=== PATIENT | male | born 1985 | race Caucasian/White ===

== ENCOUNTER 2023-06-01 11:10 | Emergency (ER) | payer SELFPAY ==
[2023-06-01 11:14] VITALS: BP 177/110; PULSE 86; RESP 16; TEMP 36.5; O2SAT 97; BMI 27.1
--- NOTE | 2023-06-01 11:19 | DI.RAD.S_ITS ---
PROCEDURE: XR RIBS LT MIN 3V W CXR1V INDICATIONS: fall/pain in left ribs TECHNIQUE: 4 views of the left ribs were acquired, along with a single view chest. COMPARISON: None. FINDINGS: Surgical changes and devices: None. Bones and chest wall: No fractures or dislocations. No suspicious bony lesions. Overlying soft tissues appear unremarkable. Lungs and pleura: No pleural effusions or pneumothorax. Lungs appear clear. Mediastinum: Mediastinal contours appear normal. Heart size is normal. IMPRESSION: No acute fracture. No osseous lesion. If symptoms and/or clinical suspicion for pathology persist, further assessment with repeat, or advanced imaging (e.g., CT, MRI, or bone scan) may be helpful for further assessment. Dictated by: Fiorella Sawyer M.D. on 06/01/2023 at 11:50 Approved by: Fiorella Sawyer M.D. on 06/01/2023 at 11:51
--- NOTE | 2023-06-01 12:55 | ED.FALL ---
HPI - Fall <Marce Strong PA-C - Last Filed: 06/01/23 13:00> General Chief Complaint: Fall Stated Complaint: poss broken ribs Time Seen by Provider: 06/01/23 12:01 Source: patient Mode of arrival: Ambulatory History of Present Illness HPI Narrative: 38-year-old male presents to the ED with left-sided rib pain status post a mechanical fall sustained yesterday. Patient states that he had a mechanical fall, fell off his porch onto his trash can, striking his left lower ribs. Patient states that he took some Aleve this morning that improved his pain. Patient denies chest pain, shortness of breath, abdominal pain, vomiting. Related Data Allergies Allergy/AdvReac Type Severity Reaction Status Date / Time No Known Drug Allergies Allergy Verified 06/01/23 11:14 Review of Systems <Marce Strong PA-C - Last Filed: 06/01/23 13:00> Constitutional Constitutional: Denies chills, Denies fatigue, Denies fever(s), Denies frequent falls, Denies lethargy and Denies weakness Eyes Eyes: Denies change in vision, Denies eye discharge, Denies irritation and Denies loss of vision ENT Ears, Nose, Mouth, and Throat: Denies change in voice, Denies dizziness, Denies neck pain, Denies sore throat and Denies throat swelling Cardiovascular Cardiovascular: Denies chest pain, Denies irregular heart rhythm, Denies lightheadedness, Denies palpitations, Denies dyspnea, Denies dyspnea on exertion and Denies orthopnea Respiratory Respiratory: Denies cough, Denies dyspnea, Denies dyspnea on exertion and Denies wheezing Gastrointestinal Gastrointestinal: Denies abdominal pain, Denies change in bowel habits, Denies diarrhea, Denies nausea and Denies vomiting Musculoskeletal Musculoskeletal: Denies neck pain and Denies numbness Comments: Left-sided rib pain Integumentary/Breasts Skin/Breast: Denies pruritus, Denies erythema, Denies rash and Denies wounds Neurologic Neurologic: Denies behavioral changes, Denies confusion, Denies dizziness, Denies frequent falls, Denies loss of vision, Denies numbness and Denies weakness Psychiatric Psychiatric: Denies anxiety, Denies behavioral changes, Denies confusion, Denies depression, Denies homicidal ideation and Denies suicidal ideation Endocrine Endocrine: Denies fatigue, Denies flushing and Denies palpitations Hematologic/Lymphatic Hematologic/Lymphatic: Denies easy bruising Allergic/Immunologic Allergic/Immunologic: Denies urticaria, Denies throat swelling and Denies wheezing Patient History <Marce Strong PA-C - Last Filed: 06/01/23 13:00> Social History Smoking Status: Current every day smoker Smoking Status: Current every day smoker tobacco type: cigarettes alcohol intake frequency: 0-2 drinks per day Substance Use Type: does not use Exam <Marce Strong PA-C - Last Filed: 06/01/23 13:00> Narrative Exam Narrative: Const General:?cooperative, healthy appearing and comfortable HENMT Head:?normal to inspection Ears:?hearing grossly normal bilaterally Nose:?external nose normal Face and sinus:?normal facial exam and sinuses nontender Mouth:?oral mucosae normal Throat:?posterior oropharynx normal Eyes General:?appearance normal, both eyes and all related structures Neck Neck:?normal visual inspection and no lymphadenopathy noted Resp Effort & Inspection:?normal respiratory effort Auscultation:?clear to auscultation bilaterally Cardio Rate:?regular rate Rhythm:?regular rhythm Musculoskeletal No erythema, deformities, bruising, tenderness to palpation of right lower ribs. Abdomen is soft, nondistended, nontender to palpation. No CVA tenderness. Neuro General:?patient alert, patient awake and patient oriented x3 Initial Vital Signs Initial Vital Signs: Vital Signs Temperature 97.7 F 06/01/23 11:14 Pulse Rate 86 06/01/23 11:14 Respiratory Rate 16 06/01/23 11:14 Blood Pressure 177/110 H 06/01/23 11:14 Pulse Oximetry 97 06/01/23 11:14 Oxygen Delivery Method Room Air 06/01/23 11:14 <Amy Ramey DO - Last Filed: 06/02/23 11:21> Initial Vital Signs Initial Vital Signs: Vital Signs Temperature 97.7 F 06/01/23 11:14 Pulse Rate 86 06/01/23 11:14 Respiratory Rate 16 06/01/23 11:14 Blood Pressure 177/110 H 06/01/23 11:14 Pulse Oximetry 97 06/01/23 11:14 Oxygen Delivery Method Room Air 06/01/23 11:14 Course <Marce Strong PA-C - Last Filed: 06/01/23 13:00> Orders Ordered: ED Orders 06/01/23 11:19 XR ribs LT min 3V w CXR1V Stat Vital Signs Vital signs: Vital Signs - 8 hr 06/01/23 11:14 Temperature 97.7 F Pulse Rate 86 Respiratory Rate 16 Blood Pressure 177/110 H Pulse Oximetry 97 Oxygen Delivery Method Room Air <Amy Ramey DO - Last Filed: 06/02/23 11:21> Orders Ordered: ED Orders 06/01/23 11:19 XR ribs LT min 3V w CXR1V Stat Vital Signs Vital signs: Vital Signs - 8 hr 06/01/23 11:14 Temperature 97.7 F Pulse Rate 86 Respiratory Rate 16 Blood Pressure 177/110 H Pulse Oximetry 97 Oxygen Delivery Method Room Air MDM - Fall <Marce Strong PA-C - Last Filed: 06/01/23 13:00> MDM Narrative Medical decision making narrative: 38-year-old male presents to the ED with left-sided rib pain status post a mechanical fall sustained yesterday. Obtained rib x-rays which were without acute findings. Physical exam is reassuring for no bruising, tenderness to palpation. Recommend continued use of Tylenol, ibuprofen or Aleve. Recommend Delsym or Robitussin for cough control as needed. Recommend follow-up with PCP as soon as possible. ED return precautions discussed with patient. Patient verbalized understanding. Medical records reviewed: Yes Discharge Plan Departure Patient Disposition: Home Clinical Impression: Rib pain Instructions: How to Prevent Falls Activity Restrictions/Additional Instructions: You were evaluated in the ED today for rib pain from a fall. Your x-ray did not show fractures or dislocations. It appears that your symptoms are bruising and musculoskeletal sprains from the fall. You may continue to take Aleve or ibuprofen at home for the pain. You may take Delsym or Robitussin for cough control. Return to the ED if you experience any chest pain, shortness of breath. Stand Alone Forms: Patient Portal/API, Work Release Note ED Sign-out <Amy Ramey DO - Last Filed: 06/02/23 11:21> Cosign ED Attending Cosignature Attestation: I was immediately available in the department for consultation.
== END 2023-06-01 13:00 | disposition home or self-care (01) ==
PROVIDERS: Emergency Provider Student in an Organized Health Care Education/Training Program
DX: R07.81 Pleurodynia (principal)
CPT/HCPCS: 71101; 99281; 99282